=== PATIENT | female | born 1965 | race African-American/Black ===

== ENCOUNTER 2017-06-22 13:37 | Emergency (ER) | payer MEDICAID, MEDICARE, OTHER ==
[~2017-06-22] VITALS: Ht 157.5 cm; Wt 54.0 kg
[2017-06-22 15:04] LABS: BASOPHILS % 0.5 % (0.0-2.0); EOSINOPHILS % 3.2 % (0.0-5.0); HEMATOCRIT. 41.6 % (36.0-48.0); LYMPHOCYTES % 30.8 % (20.0-50.0); MEAN CORPUSCULAR HEMOGLOBIN 26.9 pg (28.0-32.0); MEAN PLATELET VOLUME 7.8 fl (7.4-10.4); MONOCYTES % 6.8 % (2.0-8.0); NEUTROPHILS % 58.7 % (40.0-76.0); PLATELET 319 x1000/uL (130-400); RED BLOOD CELL COUNT 5.21 mill/uL (4.2-5.4); RED CELL DISTRIBUTION WIDTH 15.4 % (11.6-14.6)
[2017-06-22 15:12] LABS: CHLORIDE 105 mEq/L (98-107)
[2017-06-22 15:14] LABS: PARTIAL THROMBOPLASTIN TIME 28.5 sec (23.4-31.0); PROTHROMBIN TIME 10.4 sec (9.4-11.6)
[2017-06-22 17:50] LABS: CLARITY URINE CLOUDY (CLEAR); COLOR URINE YELLOW (YELLOW); KETONES URINE NEGATIVE (NEGATIVE); LEUKOCYTE ESTERASE URINE 2+ (NEGATIVE); NITRITE URINE POSITIVE (NEGATIVE); OCCULT BLOOD URINE NEGATIVE (NEGATIVE); PROTEIN URINE NEGATIVE (NEGATIVE); SPECIFIC GRAVITY URINE 1.017 (1.005-1.030); UROBILINOGEN URINE 0.2 E.U./dL (0.2-1.0)
[2017-06-22] MEDS ORDERED: LISINOPRIL 5MG TABLET PO ONE (20:00)
[2017-06-22] MEDS ORDERED: HYDROCHLOROTHIAZIDE 25MG TABLET PO ONE (20:00)
[2017-06-22] MEDS ORDERED: CEFTRIAXONE 1 G PREMIX 50 ML IV ONE (23:45)
[2017-06-23] MEDS ORDERED: QUETIAPINE FUMARATE 100MG TABLET PO SCH (00:34)
[2017-06-23] MEDS: FLUOXETINE HCL 20MG CAPSULE PO SCH (09:50)
[2017-06-23 11:57] LABS: *AMPHETAMINES SCREEN URINE NEGATIVE (NEGATIVE); *BARBITURATES SCREEN URINE NEGATIVE (NEGATIVE); *BENZODIAZEPINES SCREEN URINE NEGATIVE (NEGATIVE); *COCAINE SCREEN URINE NEGATIVE (NEGATIVE); METHADONE URINE SCREEN NEGATIVE (NEGATIVE); OPIATES URINE SCREEN NEGATIVE (NEGATIVE); PHENCYCLIDINE URINE SCREEN NEGATIVE (NEGATIVE)
[2017-06-23 11:58] LABS: CANNABINOID URINE SCREEN NEGATIVE (NEGATIVE)
[2017-06-23] MEDS ORDERED: HYDROCHLOROTHIAZIDE 12.5MG CAPSULE PO ONE (19:00)
[2017-06-23] MEDS ORDERED: LISINOPRIL 5MG TABLET PO ONE (19:00)
[2017-06-23] MEDS: QUETIAPINE FUMARATE 100MG TABLET PO SCH (19:21)
[2017-06-25] MEDS: FLUOXETINE HCL 20MG CAPSULE PO SCH ×2 (00:51→09:17)
[2017-06-25] MEDS: QUETIAPINE FUMARATE 100MG TABLET PO SCH ×2 (00:51→09:00)
[2017-06-25] MEDS ORDERED: AMLODIPINE 5MG TABLET PO ONE (21:45)
[2017-06-25] MEDS ORDERED: LEVOFLOXACIN 500MG TABLET PO ONE (21:45)
[2017-06-25] MEDS ORDERED: LEVOFLOXACIN 500MG TABLET PO SCH (21:50)
[2017-06-25] MEDS ORDERED: AMLODIPINE 5MG TABLET PO SCH (22:00)
[2017-06-26] MEDS ORDERED: AMLODIPINE 5MG TABLET PO SCH (09:00)
[2017-06-26] MEDS ORDERED: LEVOFLOXACIN 500MG TABLET PO SCH (11:00)
[2017-06-26] MEDS: QUETIAPINE FUMARATE 100MG TABLET PO SCH (13:28)
[2017-06-26] MEDS: FLUOXETINE HCL 20MG CAPSULE PO SCH (14:12)
[2017-06-26] MEDS ORDERED: CLONIDINE 0.1MG TABLET PO ONE (18:15)
[2017-06-26 19:45] VITALS: BP 176/92
== END 2017-06-26 20:15 | disposition home or self-care (01) ==
LOC: ER 15:12
DX: F31.9 Bipolar disorder, unspecified (principal); N39.0 Urinary tract infection, site not specified; F41.9 Anxiety disorder, unspecified; I10 Essential (primary) hypertension; R45.851 Suicidal ideations; R44.0 Auditory hallucinations; R07.9 Chest pain, unspecified; R00.2 Palpitations
CPT/HCPCS: 36415; 71045; 80053; 80305; 81003; 83690; 84484; 85025; 85610; 85730; 93005; 96365; 99285; G0482; J0696; Z7610

== ENCOUNTER 2018-09-10 10:00 | Emergency (ER) | payer MEDICAID, OTHER ==
[~2018-09-10] VITALS: Ht 157.5 cm; Wt 59.0 kg
[2018-09-10] MEDS ORDERED: LEVOFLOXACIN 750MG PREMIX 150 ML IV ONE (10:45)
[2018-09-10] MEDS ORDERED: KETOROLAC 30MG/ML VIAL IV ONE (10:45)
[2018-09-10] MEDS ORDERED: VANCOMYCIN 1 G PREMIX 200 ML IV ONE (10:45)
[2018-09-10] MEDS ORDERED: SODIUM CHLORIDE 0.9% 1000ML BAG (SEPSIS BOLUS) IV ONE (10:45)
[2018-09-10 11:19] LABS: BASOPHILS % 0.3 % (0.0-2.0); EOSINOPHILS % 4.5 % (0.0-5.0); HEMATOCRIT. 36.8 % (36.0-48.0); HEMOGLOBIN. 12.2 g/dL (12.0-16.0); LYMPHOCYTES % 21.4 % (20.0-50.0); MEAN CORPUSCULAR HEMOGLOBIN 26.6 pg (28.0-32.0); MEAN CORPUSCULAR VOLUME 80.4 fL (81.0-99.0); MONOCYTES % 5.9 % (2.0-8.0); NEUTROPHILS % 67.9 % (40.0-76.0); PLATELET 245 x1000/uL (130-400); RED BLOOD CELL COUNT 4.58 mill/uL (4.2-5.4); RED CELL DISTRIBUTION WIDTH 14.5 % (11.6-14.6)
[2018-09-10 11:26] LABS: CHLORIDE 105 mEq/L (98-107)
[2018-09-10] MEDS ORDERED: POTASSIUM CHLORIDE 20MEQ TABLET SR PO ONE (11:45)
[2018-09-10] MEDS ORDERED: METHYLPREDNISOLONE SOD SUCC 125 MG/2 ML VIAL IV ONE (13:15)
[2018-09-10] MEDS ORDERED: DIPHENHYDRAMINE 50MG/ML VIAL IV ONE (13:15)
[2018-09-10] MEDS ORDERED: FAMOTIDINE 20MG/2ML VIAL IV ONE (13:15)
[2018-09-10] MEDS ORDERED: METOPROLOL TARTRATE 25MG TABLET PO ONE (14:45)
[2018-09-10] MEDS ORDERED: HYDROCHLOROTHIAZIDE 25MG TABLET PO ONE (15:15)
[2018-09-10] MEDS ORDERED: PIPERACILLIN/TAZ 3.375G PREMIX 50 ML IV SCH (18:30)
[2018-09-10] MEDS ORDERED: CLONIDINE 0.1MG TABLET PO PRN (18:30)
[2018-09-10] MEDS ORDERED: ACETAMINOPHEN 325MG TABLET PO PRN (18:30)
[2018-09-10] MEDS ORDERED: KETOROLAC 30MG/ML VIAL IV PRN (18:30)
[2018-09-10] MEDS ORDERED: ONDANSETRON HCL 4MG/2ML INJ IV PRN (18:30)
[2018-09-10] MEDS ORDERED: LOSARTAN POTASSIUM 100 MG TABLET PO SCH (18:30)
[2018-09-10] MEDS ORDERED: DIPHENHYDRAMINE 50MG/ML VIAL IV PRN (18:45)
[2018-09-10 19:39] VITALS: BP 185/117
== END 2018-09-10 21:29 | disposition left against medical advice (07) ==
LOC: ER 10:00 → EDBEDREQ 13:29 → EDBEDREQSVC 16:17 → CANRESERV 20:03 → ENRESERV 20:03 → ER 21:29 → CANBEDREQ 23:26
DX: L03.116 Cellulitis of left lower limb (principal); T36.8X5A Adverse effect of other systemic antibiotics, initial encounter; E87.6 Hypokalemia; I10 Essential (primary) hypertension; Z88.3 Allergy status to other anti-infective agents; Y92.018 Other place in single-family (private) house as the place of occurrence of the external cause
CPT/HCPCS: 36415; 73590; 80048; 85025; 87040; 93005; 93971; 96365; 96366; 96368; 96375; 99284; J1200; J1885; J1956; J2930; J3370; J3490; J7030; Z7610

== ENCOUNTER 2018-09-20 07:55 | Emergency (ER) | payer MEDICAID ==
[~2018-09-20] VITALS: Ht 167.6 cm; Wt 65.0 kg
[2018-09-20 08:06] VITALS: BP 173/111
[2018-09-20] MEDS ORDERED: DIPHENHYDRAMINE 50MG/ML VIAL IM ONE (08:45)
[2018-09-20] MEDS ORDERED: DIPHENHYDRAMINE 50MG/ML VIAL IV ONE (08:45)
[2018-09-20] MEDS ORDERED: TRIAMTERENE/HYDROCHLOROTHIAZID 75/50MG TABLET PO SCH (09:15)
== END 2018-09-20 09:28 | disposition home or self-care (01) ==
LOC: ER 07:55
DX: L03.116 Cellulitis of left lower limb (principal); L03.115 Cellulitis of right lower limb; I10 Essential (primary) hypertension; Z88.3 Allergy status to other anti-infective agents
CPT/HCPCS: 96372; 99283; J1200

== ENCOUNTER 2022-04-23 13:35 | Emergency (ER) | payer OTHER, MEDICAID ==
[~2022-04-23] VITALS: Ht 160 cm; Wt 65.0 kg
[2022-04-23 16:52] LABS: BASOPHILS % 0.9 % (0.0-2.0); EOSINOPHILS % 3.6 % (0.0-5.0); HEMATOCRIT. 40.1 % (36.0-48.0); HEMOGLOBIN. 13.5 g/dL (12.0-16.0); LYMPHOCYTES % 27.9 % (20.0-50.0); MEAN CORPUSCULAR HEMOGLOBIN 26.4 pg (28.0-32.0); MEAN CORPUSCULAR VOLUME 78.5 fL (81.0-99.0); MEAN PLATELET VOLUME 7.9 fl (7.4-10.4); NEUTROPHILS % 61.6 % (40.0-76.0); PLATELET 325 x1000/uL (130-400); RED BLOOD CELL COUNT 5.11 mill/uL (4.2-5.4); RED CELL DISTRIBUTION WIDTH 15.1 % (11.6-14.6)
[2022-04-23 17:00] LABS: CHLORIDE 103 mEq/L (98-107)
[2022-04-23] MEDS ORDERED: IBUP-2028 MT ×3 (18:44→18:57)
[2022-04-23] MEDS ORDERED: IBUPROFEN 400MG TABLET PO ONE (18:45)
[2022-04-23] MEDS ORDERED: AMLO5TAB88 MT ×3 (18:55→18:57)
[2022-04-23 19:02] VITALS: BP 174/118
== END 2022-04-23 19:12 | disposition home or self-care (01) ==
LOC: ER 13:38
DX: S09.8XXA Other specified injuries of head, initial encounter (principal); I10 Essential (primary) hypertension; W20.8XXA Other cause of strike by thrown, projected or falling object, initial encounter; Y93.9 Activity, unspecified; Y92.9 Unspecified place or not applicable; Z88.1 Allergy status to other antibiotic agents
CPT/HCPCS: 36415; 71045; 80053; 83880; 84484; 85025; 93005; 99285